=== PATIENT | female | born 1955 | race Caucasian/White ===

== ENCOUNTER → 2018-11-25 | Outpatient (CLI) | payer BC, OTHER | LOC: RAD 14:28 | PROVIDERS: ATTEND Physician Assistant | DX: Z12.31 Encounter for screening mammogram for malignant neoplasm of breast (principal) | CPT/HCPCS: 77067 ==

== ENCOUNTER → 2018-12-14 | Outpatient (CLI) | payer BC ==
--- NOTE | 2018-12-14 14:04 | Diagnostic Imaging Report ---
INDICATION: Left breast density. Patient presents for additional views. COMPARISON: Screening mammogram of 11/25/2018. TECHNIQUE: 2D and 3D unilateral left diagnostic mammography was performed including spot compression CC, rolled CC, and conventional 90 degree lateral views. FINDINGS: The additional views show a persistent circumscribed nodular density in the lower inner aspect of the left breast approximately 4-5 cm from the nipple. No suspicious calcifications are seen. IMPRESSION: There is a circumscribed nodule in the lower inner left breast, as described. Further evaluation with ultrasound is recommended and will be performed today. ACR BI-RADS Category 0: Incomplete. (Needs additional imaging evaluation). Result letter will be mailed to the patient. Note: At least 10% of breast cancer is not imaged by mammography. Dictated by: Dictated on workstation # [id number]
--- NOTE | 2018-12-14 14:05 | Diagnostic Imaging Report ---
INDICATION: Abnormal mammogram. This study is performed for further evaluation. COMPARISON: Correlation is made with the diagnostic mammogram from earlier this same day and the screening mammogram from 11/25/2018. TECHNIQUE: Sonographic interrogation of the lower inner left breast was performed. FINDINGS: There is a simple appearing cyst at the 5 o'clock location, 4 cm from the nipple, measuring 4 mm x 3 mm x 4 mm. No solid mass is identified. No other abnormality is detected. IMPRESSION: There is a simple cyst at the 5 o'clock location of the left breast, corresponding to the mammographic density. The patient may return to routine annual screening mammography. ACR BI-RADS Category 2: Benign findings. Dictated by: Dictated on workstation # [id number]
== END ==
LOC: RAD 07:48
PROVIDERS: ATTEND Physician Assistant
DX: N60.02 Solitary cyst of left breast (principal); N63.24 Unspecified lump in the left breast, lower inner quadrant
CPT/HCPCS: 76642

== ENCOUNTER → 2021-11-25 | Outpatient (CLI) | payer BC ==
--- NOTE | 2021-11-25 13:54 | Diagnostic Imaging Report ---
INDICATION: Routine screening. COMPARISON: 11/25/2018. TECHNIQUE: 2D and 3D bilateral screening mammography was performed with CAD. FINDINGS: Both breasts are heterogeneously dense, limiting the sensitivity of mammography. The parenchymal pattern is stable. No mass or malignant-appearing microcalcifications are seen. The axillae are unremarkable. IMPRESSION: No mammographic features suspicious for malignancy are identified. ACR BI-RADS Category 1: Negative. Result letter will be mailed to the patient. Note: At least 10% of breast cancer is not imaged by mammography. Dictated by: Dictated on workstation # [id number]
== END ==
LOC: RAD 09:30
PROVIDERS: ATTEND Physician Assistant
DX: Z12.31 Encounter for screening mammogram for malignant neoplasm of breast (principal)
CPT/HCPCS: 77063; 77067

== ENCOUNTER 2021-12-02 05:32 | Outpatient (CLI) | payer BC ==
[~2021-12-02] VITALS: Ht 157.5 cm; Wt 81.4 kg
[2021-12-08] MEDS ORDERED: FAMO10TA43 PO (13:56)
[2021-12-08] MEDS ORDERED: LIFI1DRO OU (13:56)
== END 2021-12-08 14:07 ==
LOC: PREOP 05:32
PROVIDERS: ATTEND Internal Medicine
DX: Z01.818 Encounter for other preprocedural examination (principal)

== ENCOUNTER 2021-12-19 09:26 | Day surgery (SDC) | payer BC ==
--- NOTE | 2021-12-01 17:07 | HISTORY AND PHYSICAL ---
DATE OF SERVICE: COLONOSCOPY HISTORY AND PHYSICAL DATE OF ADMISSION: 12/05/2021 HISTORY OF PRESENT ILLNESS: The patient is a 66-year-old white female referred for screening colonoscopy. She had a colonoscopy in 2006 around the timing of diverticular disease that resulted in perforation and colonic resection. The colonoscopy was actually followed up to this and not the cause, it was apparently spontaneous. She has had no problems since, did not think that she had any polyps at that time. She is not aware of any family history for colon cancer. Denies bright red blood per rectum, melena, bowel habit change with some occasional constipation or abdominal pain. PAST MEDICAL HISTORY: Significant for dysphonia. She gets significant benefit from Botox injection, has history of osteoarthritis and dry eye syndrome. MEDICATIONS: Include Pepcid p.r.n. for heartburn and Xiidra one drop b.i.d. both eyes. PAST SURGICAL HISTORY: Other than her diverticular resection, presumably involving the sigmoid colon 2006, is pertinent for partial hysterectomy in 1994. SOCIAL HISTORY: She is employed, . No past smoking history and no significant alcohol consumption. FAMILY HISTORY: Brother of T-cell lymphoma in his 60s. Mother had some form of cancer, she is not sure. Father had hypertension and diabetes as well as heart disease. REVIEW OF SYSTEMS: CONSTITUTIONAL: Denies night sweats, chills, fever, change in weight. GASTROINTESTINAL: As noted in the HPI. PULMONARY: Denies cough, wheezing or shortness of breath. CARDIOVASCULAR: Denies orthopnea, PND, pedal edema, syncope or chest pain. PHYSICAL EXAMINATION: GENERAL: Reveals a pleasant white female, appears to be in no acute distress. VITAL SIGNS: Weight 179.6 pounds, blood pressure 128/90. HEENT: Unremarkable. Sclerae nonicteric. Voice is slightly hoarse. She is overdue for Botox. CHEST: Clear to auscultation. No stridor noted. CARDIOVASCULAR: Reveals a regular rate and rhythm without murmur, S3 or S4. ABDOMEN: Soft, supple without mass, organomegaly or tenderness. EXTREMITIES: Reveal no cyanosis, clubbing or edema. ASSESSMENT AND PLAN: Rationale for screening colonoscopy was discussed. The patient is being set up on Wednesday12/05/2021; prep instructions with the Suprep kit were given and questions were answered. I thank you for the referral of this pleasant lady. Job ID: [id number] DocumentID: [id number] Dictated Date: 12/01/2021 16:28:20 Office Lead Date: 12/01/2021 16:47:25 Dictated By: ROSSI OWEN MD
[~2021-12-19] VITALS: Ht 157 cm; Wt 81.0 kg
[~2021-12-19 09:26] MED LIST: FAMO10TA43 PO; LIFI1DRO OU
[2021-12-19] MEDS ORDERED: LACTATED RINGERS 1,000 ML IV ONE (09:31)
[2021-12-19] MEDS ORDERED: LACTATED RINGERS 1,000 ML IV STA ×2 (09:32→09:38)
[2021-12-19 09:45] VITALS: BP 143/85
[2021-12-19] MEDS ORDERED: LIDOCAINE JELLY 2% 6 ML SYRINGE MM PRN (09:45)
[2021-12-19] MEDS ORDERED: PROPOFOL INJECTION 50 ML IV ONE (10:14)
--- NOTE | 2021-12-19 10:20 | Pre-Op Note & Conscious Sedat ---
Pre-Operative Progress Note H&P Reviewed The H&P was reviewed, patient examined and no changes noted. Date H&P Reviewed: Dec 19, 2021 Time H&P Reviewed: 09:40 Conscious Sedation Pre-Proced ASA Score 2 For ASA 3 and 4: Consider anesthesia and medical clearance. Also, for patients with a history of failed moderate sedation consider anesthesia. Airway Lungs Heart ASA score ASA 1: a normal healthy patient ASA 2: a patient with a mild systemic disease (mid diabetes, controlled hypertension, obesity ASA 3: a patient with a severe systemic disease that limits activity (angina, COPD, prior Myocardial infarction) ASA 4: a patient with an incapacitating disease that is a constant threat to life (CHF, renal failure) ASA 5: a moribund patient not expected to survive 24 hrs. (ruptured aneurysm) ASA 6: a declared brain- patient whose organs are being harvested. For emergent operations, add the letter E after the classification Mallampati Classification Grade 2 Sedation Plan Analgesia, Amnesia, Plan communicated to team members, Discussed options with patient/fam, Discussed risks with patient/fam The patient is an appropriate candidate to undergo the planned procedure, sedation, and anesthesia. The patient immediately re-assessed prior to indication. ROSSI OWEN MD Dec 19, 2021 10:20
[2021-12-19 10:44] VITALS: BP 103/56
--- NOTE | 2021-12-19 10:45 | Anesthesia-General Post-Op ---
MAC Patient Condition Mental Status/LOC: Same as Preop Cardiovascular: Satisfactory Nausea/Vomiting: Absent Respiratory: Satisfactory Pain: Controlled Complications: Absent Post Op Complications Complications None Follow Up Care/Instructions Patient Instructions None needed. Anesthesiology Discharge Order Discharge Order Patient is doing well, no complaints, stable vital signs, no apparent adverse anesthesia problems. No complications reported per nursing. GLORY SHANE CRNA Dec 19, 2021 10:45
[2021-12-19 10:46] VITALS: BP 103/56
[2021-12-19 11:00] VITALS: BP 135/88
--- NOTE | 2021-12-19 15:56 | OPERATIVE REPORT ---
DATE OF SERVICE: COLONOSCOPY SUMMARY INDICATION FOR THE PROCEDURE: Screening. DESCRIPTION OF PROCEDURE: The patient was placed in the left lateral decubitus position. Prior to undergoing colonoscopy, a digital rectal evaluation was performed. Anal sphincter tone was normal and the perianal reflex was intact. No abnormalities were noted on digital inspection of the anal canal or distal rectal vault. The colonoscope was then inserted into the rectum and under direct visualization advanced to the cecum. Cecum was identified by identification of the ileocecal valve and the cecal strap. Quality of prep was good. FINDINGS: There was no evidence for internal or external hemorrhoids and the rectum was unremarkable. A 6 mm sessile adenomatous appearing polyp was noted at the rectosigmoid junction. It was biopsied and ablated with no subsequent blood loss with the hot forceps. In the distal sigmoid colon, surgical anastomotic margin was noted and unremarkable. Several medium size diverticulum were noted in what remained of the sigmoid colon. The descending colon, splenic flexure, transverse colon, hepatic flexure, ascending colon, and cecum were unremarkable. ASSESSMENT: One 6 mm polyp was removed via hot forceps from the rectosigmoid junction. As long as there are no surprises on histopathology report, we will only advocate consideration for repeat screening colonoscopy in 10 years as long as there continues to be no family history for colon cancer. There is an anastomotic margin noted from previous resection of diverticular disease noted in the distal sigmoid colon that was unremarkable. There are several medium size sigmoid diverticulum with likely remained in the sigmoid colon or distal descending colon without evidence for diverticulitis. No other abnormalities were noted on today's procedure. Job ID: [id number] DocumentID: [id number] Dictated Date: 12/19/2021 10:40:22 Taxation Agent Date: 12/19/2021 15:55:27 Dictated By: ROSSI OWEN MD
== END 2021-12-19 11:16 | disposition home or self-care (01) ==
LOC: ENDO 09:26
PROVIDERS: ATTEND Internal Medicine
DX: Z12.11 Encounter for screening for malignant neoplasm of colon (principal); D12.8 Benign neoplasm of rectum; Z90.49 Acquired absence of other specified parts of digestive tract
CPT/HCPCS: 88305

== ENCOUNTER 2022-05-23 09:07 | Emergency (ER) | payer BC ==
[~2022-05-23] VITALS: Ht 157.4 cm; Wt 81.6 kg
[2022-05-23 09:36] LABS: BASOPHILS # (AUTO) 0.1 10^3/uL (0.0-0.1); BASOPHILS % (AUTO) 1 % (0-10); EOSINOPHILS % (AUTO) 1 % (0-10); HEMATOCRIT 48 % (35-52); HEMOGLOBIN 16.1 g/dL (11.5-16.0); LYMPHOCYTES # (AUTO) 1.1 10^3/uL (1.0-4.0); LYMPHOCYTES % (AUTO) 15 % (12-44); MEAN CORPUSCULAR HEMOGLOBIN 29 pg (25-34); MEAN CORPUSCULAR HGB CONC 34 g/dL (32-36); MEAN CORPUSCULAR VOLUME 87 fL (80-99); MEAN PLATELET VOLUME 9.8 fL (9.0-12.2); MONOCYTES # (AUTO) 0.4 10^3/uL (0.0-1.0); MONOCYTES % (AUTO) 5 % (0-12); NEUTROPHILS # (AUTO) 5.9 10^3/uL (1.8-7.8); NEUTROPHILS % (AUTO) 78 % (42-75); PLATELET COUNT 269 10^3/uL (130-400); WHITE BLOOD COUNT 7.5 10^3/uL (4.3-11.0)
[2022-05-23] MEDS: NITROGLYCERIN 0.4 MG SL TABS BTL 25'S SL PRN ×2 (09:43→09:52)
[2022-05-23] MEDS ORDERED: ASPIRIN 81 MG CHEW (CHILDREN'S ASA) PO ONE (09:45)
[2022-05-23 09:50] LABS: ALBUMIN 4.1 GM/DL (3.2-4.5)
[2022-05-23 09:51] LABS: CALCIUM 9.3 MG/DL (8.5-10.1); PROTHROMBIN TIME PATIENT 13.5 SEC (12.2-14.7)
[2022-05-23 09:52] LABS: TOTAL PROTEIN 7.8 GM/DL (6.4-8.2)
[2022-05-23 09:54] LABS: BILIRUBIN,TOTAL 0.7 MG/DL (0.1-1.0)
[2022-05-23 09:56] LABS: CREATININE SERUM 0.71 MG/DL (0.60-1.30)
[2022-05-23 09:59] LABS: MAGNESIUM 2.1 MG/DL (1.6-2.4)
[2022-05-23] MEDS ORDERED: RT-ALBUTEROL HFA 8.5 GM INHALER IH STA (10:21)
--- NOTE | 2022-05-23 10:28 | ED Chest Pain ---
General Chief Complaint: Cardiac/General Problems Stated Complaint: SOA/CHEST PRESSURE Nursing Triage Note: PT AMB TO [facility] 6 WITH WITH COMPLAINTS OF CHEST PRESSURE AND SOB SINCE WEDNESDAY. PT STATED THAT SHE HAD A STRESSOR AT WORK ON WEDNESDAY AND THE SITUATION HAS BEEN BOTHERING HER SINCE WEDNESDAY. Source: patient Exam Limitations: no limitations History of Present Illness Date Seen by Provider: May 23, 2022 Time Seen by Provider: 09:12 Initial Comments This 66-year-old woman presents to the emergency room with complaints of upper chest pressure and shortness of air for the past 4 days that is progressively worsening. She reports increased stress at work at the time of onset. She denies any known history of heart or lung problems although she later admits that she previously used an inhaler. She does have a chronic cough which she attributes to GERD. She also has chronic spasmodic dysphonia. Chest pressure is worse when lying flat and shortness of air is worse with exertion. Milagro Singh is her primary care provider. She does not have a hand cloth folder. She initially would not identify her chest pressure as a pain and would not rated on the pain scale. However, she later stated she would rate the discomfort 8/10 on arrival and 2/10 after nitroglycerin. She is anxious. Allergies and Home Medications Allergies Coded Allergies: No Known Drug Allergies (Unverified , 12/08/21) Patient Home Medication List Home Medication List Reviewed: Yes Famotidine (Pepcid AC) 10 Mg Tablet, 10 MG PO DAILY PRN for HEARTBURN, (Reported) Entered as Reported by: MARLON GRIDER on 12/08/21 1356 Lifitegrast (Xiidra) 1 Each Droperette, 1 DROP OU BID, (Reported) Entered as Reported by: MARLON GRIDER on 12/08/21 1356 Review of Systems Review of Systems Constitutional: no symptoms reported EENTM: See HPI Respiratory: See HPI Cardiovascular: See HPI Gastrointestinal: See HPI Genitourinary: No Symptoms Reported Musculoskeletal: no symptoms reported Skin: no symptoms reported Psychiatric/Neurological: See HPI Endocrine: No Symptoms Reported Hematologic/Lymphatic: No Symptoms Reported Past Ufxztgm-Cooojz-Cizygr Hx Patient Social History Tobacco Use?: Yes Tobacco type used: Cigarettes Substance use?: No Alcohol Use?: No Pt feels they are or have been: Unable to obtain Immunizations Up To Date Influenza Vaccine Up-to-Date: No; Not Current First/Initial COVID19 Vaccinat: yes Second COVID19 Vaccination Randy: yes Third COVID19 Vaccination Date: NO Seasonal Allergies Seasonal Allergies: No Past Medical History Surgeries: Yes (colon resection) Abdominal (Partial colon resection after bowel perforation from diverticulitis), Appendectomy, Bladder Surgery, Hysterectomy Respiratory: Yes (Tobaccoism) Cardiac: No Neurological: No : 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 oz. kg; 32.00 BMI Method: General Appearance: WD/WN, Anxious HEENT: PERRL/EOMI, Normal ENT Inspection, Pharynx Normal Neck: Normal Inspection; No JVD Respiratory: Chest Non Tender, Lungs Clear, Normal Breath Sounds, No Accessory Muscle Use, No Respiratory Distress Cardiovascular: Regular Rate, Rhythm, No Edema, No Murmur Gastrointestinal: Normal Bowel Sounds, Non Tender, Soft Extremity: Normal Inspection, Non Tender, No Calf Tenderness, No Pedal Edema Neurologic/Psychiatric: Alert, Oriented x3, No Motor/Sensory Deficits, fisher eel II- XII Norm as Tested, Other (Anxious, tearful at times) Skin: Normal Color, Warm/Dry Progress/Results/Core Measures Results/Orders Lab Results Laboratory Tests Test 05/23/22 09:27 05/23/22 09:37 05/23/22 11:33 Range/Units White Blood Count 7.5 4.3-11.0 10^3/uL Red Blood Count 5.51 H 3.80-5.11 10^6/uL Hemoglobin 16.1 H 11.5-16.0 g/dL Hematocrit 48 35-52 % Mean Corpuscular Volume 87 80-99 fL Mean Corpuscular Hemoglobin 29 25-34 pg Mean Corpuscular Hemoglobin Concent 34 32-36 g/dL Red Cell Distribution Width 13.7 10.0-14.5 % Platelet Count 269 130-400 10^3/uL Mean Platelet Volume 9.8 9.0-12.2 fL Immature Granulocyte % (Auto) 0 % Neutrophils (%) (Auto) 78 H 42-75 % Lymphocytes (%) (Auto) 15 12-44 % Monocytes (%) (Auto) 5 0-12 % Eosinophils (%) (Auto) 1 0-10 % Basophils (%) (Auto) 1 0-10 % Neutrophils # (Auto) 5.9 1.8-7.8 10^3/uL Lymphocytes # (Auto) 1.1 1.0-4.0 10^3/uL Monocytes # (Auto) 0.4 0.0-1.0 10^3/uL Eosinophils # (Auto) 0.0 0.0-0.3 10^3/uL Basophils # (Auto) 0.1 0.0-0.1 10^3/uL Immature Granulocyte # (Auto) 0.0 0.0-0.1 10^3/uL Prothrombin Time 13.5 12.2-14.7 SEC INR Comment 1.0 0.8-1.4 Activated Partial Thromboplast Time 36 H 24-35 SEC Sodium Level 143 135-145 MMOL/L Potassium Level 4.0 3.6-5.0 MMOL/L Chloride Level 108 H 98-107 MMOL/L Carbon Dioxide Level 23 21-32 MMOL/L Anion Gap 12 5-14 MMOL/L Blood Urea Nitrogen 10 7-18 MG/DL Creatinine 0.71 0.60-1.30 MG/DL Estimat Glomerular Filtration Rate 95 BUN/Creatinine Ratio 14 Glucose Level 101 70-105 MG/DL Calcium Level 9.3 8.5-10.1 MG/DL Corrected Calcium 9.2 8.5-10.1 MG/DL Magnesium Level 2.1 1.6-2.4 MG/DL Total Bilirubin 0.7 0.1-1.0 MG/DL Aspartate Amino Transf (AST/SGOT) 14 5-34 U/L Alanine Aminotransferase (ALT/SGPT) 15 0-55 U/L Alkaline Phosphatase 94 40-136 U/L Myoglobin 30.2 10.0-92.0 NG/ML Troponin I < 0.028 < 0.028 <0.028 NG/ML B-Type Natriuretic Peptide 18.4 <100.0 PG/ML Total Protein 7.8 6.4-8.2 GM/DL Albumin 4.1 3.2-4.5 GM/DL Influenza Type A (RT-PCR) Not Detected Not Detecte Influenza Type B (RT-PCR) Not Detected Not Detecte SARS-CoV-2 RNA (RT-PCR) Not Detected Not Detecte My Orders Orders - SAMUEL GONSALEZ MD Cbc With Automated Diff (05/23/22 09:12) Magnesium (05/23/22 09:12) Chest 1 View, Ap/Pa Only (05/23/22 09:12) Ekg Tracing (05/23/22 09:12) Comprehensive Metabolic Panel (05/23/22 09:12) Myoglobin Serum (05/23/22 09:12) Protime With Inr (05/23/22 09:12) Partial Thromboplastin Time (05/23/22 09:12) O2 (05/23/22 09:12) Monitor-Rhythm Ecg Trace Only (05/23/22 09:12) Ed Iv/Invasive Line Start (05/23/22 09:12) Bnp Kirstie (05/23/22 09:12) Troponin I Kirstie (05/23/22 09:12) Covid 19 Inhouse Test (05/23/22 09:12) Influenza A And B By Pcr (05/23/22 09:12) Nitroglycerin 0.4 Mg Btl 25's (Nitrostat (05/23/22 09:45) Aspirin Chewable Tablet (Baby Aspirin Ch (05/23/22 09:45) Albuterol Inhaler (Albuterol) (05/23/22 10:21) Alprazolam Tablet (Xanax Tablet) (05/23/22 10:30) Troponin I Inyo (05/23/22 11:30) Medications Given in ED Current Medications Medications Dose Ordered Sig/Gera Route Start Time Stop Time Status Last Admin Dose Admin Alprazolam 0.25 mg ONCE ONCE PO 05/23/22 10:30 05/23/22 10:31 DC 05/23/22 10:28 0.25 MG Aspirin 324 mg ONCE ONCE PO 05/23/22 09:45 05/23/22 09:46 DC 05/23/22 09:42 324 MG Nitroglycerin 0.4 mg UD PRN SL 05/23/22 09:45 05/23/22 13:35 DC 05/23/22 09:52 0.4 MG Vital Signs/I&O 05/23/22 05/23/22 09:11 13:50 Temp 36.6 Pulse 78 80 Resp 12 12 B/P (MAP) 169/103 (125) 139/94 Pulse Ox 94 95 O2 Delivery Room Air Room Air Blood Pressure Mean: 125 Progress Progress Note #1: Time: 10:24 Progress Note Patient received aspirin and nitroglycerin. Her initial work-up is unremarkable. Although she would not initially describe her chest pressure as a pain and score it, she states that pressure was relieved by nitroglycerin. When pressed for a score, she states that nitroglycerin x2 decreased her chest pressure from 8/10 down to 2/10. We will give her a third nitroglycerin for the residual chest pressure. She states nitroglycerin did not improve her shortness of breath. On reexamination she was found to have some delayed forced expiration that also caused some mild wheezing. She reports having to use inhalers in the past. Forced expiration also induced cough. We will try an albuterol inhaler for her shortness of breath. A 2-hour troponin will be drawn at 1130. She is in tears because of anxiety. Xanax 0.25 mg will be given to treat the anxiety. Progress Note #2: Progress Note Patient experienced complete relief of symptoms after above care. Repeat troponin was negative. Courtesy call was placed to Dr. Lawrence with intent to have patient follow-up in his clinic. I did explain to the patient that her cardiac work-up is not complete in the emergency room and it is critical for her to follow-up with a hand cloth folder for further evaluation. I also explained that she should return to the emergency room if she has recurrent symptoms that do not resolve with use of the inhaler. She expressed understanding. See discharge instructions for further discussion. Patient was discharged with the inhaler and spacer. Initial ECG Impression Date: May 23, 2022 Initial ECG Impression Time: 09:27 Initial ECG Rate: 80 Initial ECG Rhythm: Normal Sinus Initial ECG Intervals: Normal Initial ECG Impression: Normal Comment Normal sinus rhythm with no ST elevation or depression. No abnormal intervals or axis deviation. Diagnostic Imaging Diagonstic Imaging: Xray Plain Films/CT/US/NM/MRI: chest Comments Chest x-ray viewed by me and report reviewed. See report below: NAME: FELIX GARCIA [facility] REC#: [id number] PT STATUS: REG ER : 1955 PHYSICIAN: SAMUEL GONSALEZ MD ADMIT DATE: 05/23/22/ER Signed Date of Exam:05/23/22 CHEST 1 VIEW, AP/PA ONLY INDICATION: Chest pain. TECHNIQUE: Single view chest 9:40 AM. CORRELATION STUDY: None FINDINGS: Heart size is borderline enlarged with a mild vascular congestion. The lungs are clear with no consolidating infiltrate. There is no significant effusion or pneumothorax. IMPRESSION: 1. Borderline heart size and vasculature. Dictated by: Dictated on workstation # [id number] Dict: 05/23/22 1001 Trans: 05/23/22 1120 CV [id number] Interpreted by: LEANDRA NAVARRO DO Electronically signed by: LEANDRA NAVARRO DO 05/23/22 1120 Departure Impression Primary Impression: Chest pressure Additional Impressions: Shortness of breath Anxiety Disposition: 01 HOME, SELF-CARE Condition: Improved Departure-Patient Inst. Decision time for Depature: 13:15 Referrals: SHARYN LAWRENCE MD FACP FACC CCDS HAN PAULINO MD (PCP/Family) Primary Care Physician Patient Instructions: Chest Pain, Chronic Obstructive Pulmonary Disease (COPD), Including Emphysema Add. Discharge Instructions: Your shortness of air and chest pain may be related to multiple causes. You may have some acid reflux contributing. You should continue on daily acid reflux medication until otherwise directed by your primary care provider. Your shortness of breath is likely at least in part due to either bronchitis or COPD. You may use your inhaler up to 4 puffs within a 4-hour period of time for wheezing or shortness of breath. Work toward smoking cessation as rapidly as possible. This is critical for your overall health and especially your heart and lung health. Seek assistance from your primary care provider if needed to help you quit. Take aspirin 81 mg daily until otherwise instructed. You may use the enteric- coated (EC) form to reduce stomach irritation. Coronary artery disease or other heart problems cannot be completely excluded as a possible contributing factor to your chest pressure and shortness of breath with an ER visit alone. It is very important that you follow-up with a hand cloth folder as soon as possible to finish your evaluation. Additional testing such as a stress test or heart catheterization may be recommended. You may call Dr. Lawrence's office directly at the number below or work through your primary care office to seek a referral. Return to the emergency room promptly if you develop recurrent symptoms that do not resolve quickly with use of the inhaler. Call with questions or concerns. All discharge instructions reviewed with patient and/or family. Voiced understanding. Copy Copies To 1: SHARYN LAWRENCE MD FACP FACC CCDS Copies To 2: HAN PAULINO MD, JOSHUA T MD May 23, 2022 10:27
[2022-05-23] MEDS ORDERED: ALPRAZolam 0.25 MG (XANAX) TAB PO ONE (10:30)
--- NOTE | 2022-05-23 10:36 | Diagnostic Imaging Report ---
INDICATION: Chest pain. TECHNIQUE: Single view chest 9:40 AM. CORRELATION STUDY: None FINDINGS: Heart size is borderline enlarged with a mild vascular congestion. The lungs are clear with no consolidating infiltrate. There is no significant effusion or pneumothorax. IMPRESSION: 1. Borderline heart size and vasculature. Dictated by: Dictated on workstation # [id number]
[2022-05-23 13:50] VITALS: BP 139/94
== END 2022-05-23 13:35 | disposition home or self-care (01) ==
LOC: EDUNIT# 09:07 → ER 09:10
DX: F41.9 Anxiety disorder, unspecified (principal); R07.89 Other chest pain; R06.02 Shortness of breath; F17.210 Nicotine dependence, cigarettes, uncomplicated; Z20.822 Contact with and (suspected) exposure to COVID-19
CPT/HCPCS: 36415; 71045; 80053; 83735; 83874; 83880; 84484; 85025; 85610; 85730; 87636; 93005

== ENCOUNTER → 2022-06-03 | Outpatient (CLI) | payer BC ==
[~2022-06-03] MED LIST changes: +RT-ALBUTEROL SULF 2.5 MG/3 ML PRE-MIX VIAL INH ONE
== END ==
LOC: RT 13:00
PROVIDERS: ATTEND Physician Assistant
DX: R06.89 Other abnormalities of breathing (principal)
CPT/HCPCS: 94060; 94726; 94729

== ENCOUNTER → 2022-06-09 | Outpatient (CLI) | payer BC ==
[~2022-06-09] MED LIST changes: -RT-ALBUTEROL SULF 2.5 MG/3 ML PRE-MIX VIAL INH ONE
== END ==
LOC: CARDFS 14:48
PROVIDERS: ATTEND Internal Medicine Cardiovascular Disease
DX: R06.00 Dyspnea, unspecified (principal)
CPT/HCPCS: 93306

== ENCOUNTER → 2022-06-29 | Outpatient (CLI) | payer BC ==
[~2022-06-29] VITALS: Ht 157 cm; Wt 77.0 kg
[~2022-06-29] MED LIST changes: +CATHETER FLUSH 10 ML SYR IVP PRN
[2022-06-29 09:14] VITALS: BP 144/92
--- NOTE | 2022-06-29 11:16 | Cardiology Stress Test Report ---
Stress Test Report Date of Procedure/Referring: Date of Procedure: Jun 29, 2022 PCP Hugo Miller MD Admitting Physician Admitting Physician: Attending Physician: Sohail Sena MD Indications: CP Baseline Heart Rate: 80 Baseline Blood Pressure: Blood Pressure Systolic: 144 Blood Pressure Diastolic: 92 Vital Signs Date Time Temp Pulse Resp B/P (MAP) Pulse Ox O2 Delivery O2 Flow Rate FiO2 06/29/22 09:14 80 144/92 (109) Baseline Vital Signs Vital Signs Date Time Temp Pulse Resp B/P (MAP) Pulse Ox O2 Delivery O2 Flow Rate FiO2 06/29/22 09:14 80 144/92 (109) Baseline EKG: Baseline EKG: NSR Summary: After explaining the procedure and details to the patient, she signed the cons ent and was brought to the stress nuclear laboratory. Patient exercised on standard [place] protocol, EKG, heart rate and blood pressure were monitored continuously, resting and stress doses of radio tracer were injected, imaging was acquired and reviewed in the short axis, horizontal long axis and vertical long axis views Patient was able to exercise for a total of 4 minutes on [place] protocol, METs 5.8 Maximum heart rate 136 Maximum blood pressure 168/96 Stress EKG, Minimal nondiagnostic changes Recovery EKG, Return to baseline TID: 0.92 SSS: 3 SDS: 2 EF: 80 Conclusion: 1. Fair exercise tolerance for 4 minutes on standard [place] protocol, 5.8 METS achieving 87% of maximal expected heart rate 2. Appropriate heart rate and blood pressure response to exercise return to b aseline during recovery 3. Nondiagnostic EKG changes with exercise return to baseline during recovery 4. No significant ischemia or infarction noted on SPECT images 5. Normal left ventricular size, ejection fraction 80% SOHAIL SENA MD Jun 29, 2022 11:16
== END ==
LOC: CARD 07:45
PROVIDERS: ATTEND Internal Medicine Cardiovascular Disease
DX: R07.9 Chest pain, unspecified (principal)
CPT/HCPCS: 78452; 93017; A9502

== ENCOUNTER → 2022-12-11 | Outpatient (CLI) | payer MEDICARE, OTHER ==
[~2022-12-11] MED LIST changes: -CATHETER FLUSH 10 ML SYR IVP PRN
--- NOTE | 2022-12-11 11:18 | Diagnostic Imaging Report ---
Indication: Routine screening. Comparison is made with prior mammograms from 11/25/2021 and 11/25/2018. 2-D and 3-D bilateral screening mammography was performed with CAD. Both breasts are heterogeneously dense, limiting the sensitivity of mammography. The parenchymal pattern is stable. No mass or malignant-appearing microcalcifications are seen. Axillae are unremarkable. IMPRESSION: BI-RADS Category 1 No mammographic features suspicious for malignancy are identified. ACR BI-RADS Category 1: Negative. Result letter will be mailed to the patient. Note: At least 10% of breast cancer is not imaged by mammography. Dictated by: Dictated on workstation # [id number]
== END ==
LOC: RAD 09:56
PROVIDERS: ATTEND Physician Assistant
DX: Z12.31 Encounter for screening mammogram for malignant neoplasm of breast (principal)
CPT/HCPCS: 77063; 77067